=== PATIENT | male | born 1965 | race Caucasian/White ===

== ENCOUNTER 2017-03-04 11:32 | Inpatient (IN) | payer OTHER ==
[2017-03-04] MEDS ORDERED: VIBRAMYCIN100 M1 PO (14:44)
[2017-03-04 15:38] LABS: BASO % 0.2 % (0-2); EOS % 0.1 % (0-7); HCT-HEMATOCRIT 41.8 % (36.0-53.5); HGB-HEMOGLOBIN 14.4 gm/dl (13.5-17.0); IMMATURE GRANULOCYTES ABSOLUTE 0.03 tho/cmm (0-0.03); IMMATURE GRANULOCYTES PERCENT 0.3 % (0-0.3); LYMPH ABSOLUTE COUNT 0.9 tho/cmm (0.8-4.5); MCH (MEAN CORPUSCULAR HGB) 32.1 pg (28.0-32.0); MCHC MEAN CORPUSCULAR HGB CONC 34.4 % (32.0-36.0); MCV (MEAN CELL VOLUME) 93.1 fl (82.0-96.0); MONOCYTE ABSOLUTE COUNT 0.6 tho/cmm (0.0-1.2); NEUTROPHIL ABSOLUTE COUNT 9.9 tho/cmm (1.6-8.0); NEUTROPHIL-AUTOMATED 9.9 tho/cmm (1.6-8.0); NEUTROPHILS % 86.4 % (40-80); PLATELET COUNT 172 tho/cmm (150-450); RED BLOOD COUNT 4.49 mil/cmm (4.40-5.70); RED CELL DISTRIBUTION WIDTH 12.2 % (12.4-16.4); WHITE BLOOD COUNT 11.4 tho/cmm (4.0-10.0)
[2017-03-04 15:40] LABS: PROTHROMBIN TIME 11.3 SECONDS (9.0-13.6)
[2017-03-04 15:53] LABS: ALB/GLOB RATIO 1.1 (0.8-2.0); ALBUMIN 3.7 g/dl (3.5-5.0); ALKALINE PHOSPHATASE 82 U/L (33-138); ALT/SGPT 47 U/L (12-78); ANION GAP 11 mmol/L (0-20); AST/SGOT 33 U/L (10-40); BILIRUBIN,TOTAL 0.9 mg/dl (0.0-1.5); BLOOD UREA NITROGEN 14 mg/dl (6-24); CALCIUM 8.4 mg/dl (8.5-10.5); CARBON DIOXIDE-VENOUS 23 mmol/L (22-32); CHLORIDE 110 mmol/l (96-110); CREATININE 0.86 mg/dl (0.60-1.30); GLUCOSE 300 mg/dL (70-110); MAGNESIUM 1.9 mg/dl (1.3-2.6); POTASSIUM 4.2 mmol/L (3.7-5.1); PREALBUMIN 19.5 mg/dl (20.0-40.0); SODIUM 140 mmol/L (135-145); eGFR VALUE FOR BLACK >90 mL/Min
[2017-03-04 19:41] LABS: ANION GAP 11 mmol/L (0-20); BLOOD UREA NITROGEN 14 mg/dl (6-24); CALCIUM 8.1 mg/dl (8.5-10.5); CARBON DIOXIDE-VENOUS 27 mmol/L (22-32); CHLORIDE 105 mmol/l (96-110); CREATININE 0.88 mg/dl (0.60-1.30); GLUCOSE 317 mg/dL (70-110); POTASSIUM 4.1 mmol/L (3.7-5.1); SODIUM 139 mmol/L (135-145); eGFR VALUE FOR BLACK >90 mL/Min
[2017-03-05 05:59] LABS: PROTHROMBIN TIME 11.1 SECONDS (9.0-13.6)
[2017-03-05 06:02] LABS: BASO % 0.2 % (0-2); EOS % 1.7 % (0-7); EOSINOPHIL ABSOLUTE COUNT 0.1 tho/cmm (0.0-0.7); HCT-HEMATOCRIT 39.2 % (36.0-53.5); IMMATURE GRANULOCYTES ABSOLUTE 0.02 tho/cmm (0-0.03); IMMATURE GRANULOCYTES PERCENT 0.2 % (0-0.3); LYMPH % 11.4 % (20-45); MCH (MEAN CORPUSCULAR HGB) 31.2 pg (28.0-32.0); MCHC MEAN CORPUSCULAR HGB CONC 33.2 % (32.0-36.0); MEAN PLATELET VOLUME 10.8 cmc (9.4-12.4); MONOCYTE ABSOLUTE COUNT 0.4 tho/cmm (0.0-1.2); NEUTROPHIL ABSOLUTE COUNT 6.9 tho/cmm (1.6-8.0); NEUTROPHIL-AUTOMATED 6.9 tho/cmm (1.6-8.0); NEUTROPHILS % 81.5 % (40-80); PLATELET COUNT 179 tho/cmm (150-450); RED BLOOD COUNT 4.17 mil/cmm (4.40-5.70); RED CELL DISTRIBUTION WIDTH 12.5 % (12.4-16.4); WHITE BLOOD COUNT 8.4 tho/cmm (4.0-10.0)
[2017-03-05 06:16] LABS: ALBUMIN 3.2 g/dl (3.5-5.0); ALKALINE PHOSPHATASE 75 U/L (33-138); ALT/SGPT 40 U/L (12-78); ANION GAP 11 mmol/L (0-20); AST/SGOT 18 U/L (10-40); BLOOD UREA NITROGEN 11 mg/dl (6-24); CARBON DIOXIDE-VENOUS 25 mmol/L (22-32); CHLORIDE 104 mmol/l (96-110); CREATININE 0.96 mg/dl (0.60-1.30); GLUCOSE 319 mg/dL (70-110); MAGNESIUM 2.2 mg/dl (1.3-2.6); PHOSPHOROUS 2.8 mg/dl (2.5-4.9); POTASSIUM 3.7 mmol/L (3.7-5.1); SODIUM 136 mmol/L (135-145); eGFR VALUE FOR BLACK >90 mL/Min
[2017-03-06] MEDS ORDERED: GLUCOPHAGE500 M3 PO (13:55)
[2017-03-06] MEDS ORDERED: NORCO 5-325 TA1 EACH PO (13:56)
[2017-03-25] MEDS ORDERED: MUPIROCIN22 G2 TP (08:28)
[2017-04-08] MEDS ORDERED: ONGLYZA2.5 M1 PO (09:34)
[2017-04-08] MEDS ORDERED: ALLEGRA ALLERG180 M1 (09:34)
== END 2017-03-06 14:20 | DRG 935 ==
LOC: BURN 11:32
PROVIDERS: Family Medicine; Surgery; ADMIT Surgery
PROC: 0HB1XZZ Excision of Face Skin, External Approach (ICD-10-PCS; principal; 2017-03-04)
PROC: 0HBGXZZ Excision of Left Hand Skin, External Approach (ICD-10-PCS; principal; 2017-03-04)
PROC: 0HBFXZZ Excision of Right Hand Skin, External Approach (ICD-10-PCS; principal; 2017-03-04)
PROC: 0HBEXZZ Excision of Left Lower Arm Skin, External Approach (ICD-10-PCS; principal; 2017-03-04)
PROC: XHRPXL2 Replacement of Skin using Porcine Liver Derived Skin Substitute, External Approach, New Technology Group 2 (ICD-10-PCS; principal; 2017-03-04)
PROC: XHRPXL2 Replacement of Skin using Porcine Liver Derived Skin Substitute, External Approach, New Technology Group 2 (ICD-10-PCS; 2017-03-06)
DX: T20.06XA Burn of unspecified degree of forehead and cheek, initial encounter (principal); T28.411A Burn of right ear drum, initial encounter; K57.90 Diverticulosis of intestine, part unspecified, without perforation or abscess without bleeding; E66.9 Obesity, unspecified; L02.32 Furuncle of buttock; E11.9 Type 2 diabetes mellitus without complications; T20.03XA Burn of unspecified degree of chin, initial encounter; T20.04XA Burn of unspecified degree of nose (septum), initial encounter; T28.0XXA Burn of mouth and pharynx, initial encounter; T20.011A Burn of unspecified degree of right ear [any part, except ear drum], initial encounter; T31.0 Burns involving less than 10% of body surface; W31.89XA Contact with other specified machinery, initial encounter; Y93.89 Activity, other specified; Y92.488 Other paved roadways as the place of occurrence of the external cause; Y99.0 Civilian activity done for income or pay; T22.012A Burn of unspecified degree of left forearm, initial encounter; T23.062A Burn of unspecified degree of back of left hand, initial encounter; T23.061A Burn of unspecified degree of back of right hand, initial encounter; Z88.2 Allergy status to sulfonamides; Z90.49 Acquired absence of other specified parts of digestive tract; Z86.14 Personal history of Methicillin resistant Staphylococcus aureus infection
CPT/HCPCS: J1815; J2250; J2270; J2405; J3010; J3370; Q4136